=== PATIENT | male | born 1990 | race African-American/Black ===

== ENCOUNTER 2018-11-02 10:25 | Emergency (ER) | payer OTHER ==
[2018-11-02 10:31] VITALS: BP 139/85
--- NOTE | 2018-11-02 10:51 | ER Document Report ---
HPI - HPI Time Seen by Provider: 11/02/18 10:37 Pain Level: Denies Notes: Patient is an otherwise healthy 28-year-old male who presents with request for suture removal. Patient has sutures placed in his right forearm. He states they have been in place for approximately 8 days. He was [place] department [place] the sutures. - CONSTITUTIONAL Constitutional: DENIES: Fever, Chills Past Medical History - General Information source: Patient - Social History Smoking Status: Never Smoker Frequency of alcohol use: Occasional Drug Abuse: None Family History: Reviewed & Not Pertinent Patient has suicidal ideation: No Patient has homicidal ideation: No - Medical History Medical History: Negative Renal/ Medical History: Denies: Hx Peritoneal Dialysis Surgical Hx: Negative - Immunizations Immunizations up to date: Yes Vertical Provider Document - CONSTITUTIONAL Notes: PHYSICAL EXAMINATION: GENERAL: Well-appearing, well-nourished and in no acute distress. HEAD: Atraumatic, normocephalic. EYES: Pupils equal round extraocular movements intact, conjunctiva are normal. ENT: Nares patent NECK: Normal range of motion LUNGS: No respiratory distress Musculoskeletal: Normal range of motion NEUROLOGICAL: Normal speech, normal gait. PSYCH: Normal mood, normal affect. SKIN: Warm, Dry, normal turgor, no rashes or lesions noted. Sutures noted to right forearm, appears to be healed well, no erythema or drainage from the area. - INFECTION CONTROL TRAVEL OUTSIDE OF THE [place] IN LAST 30 DAYS: No Course - Re-evaluation Re-evalutation: Sutures removed, patient instructed on wound care. - Vital Signs Vital signs: Temp Pulse Resp BP Pulse Ox 98.3 F 45 L 14 139/85 H 100 11/02/18 10:30 11/02/18 10:30 11/02/18 10:30 11/02/18 10:30 11/02/18 10:30 Discharge - Discharge Clinical Impression: Visit for suture removal Condition: Stable Disposition: HOME, SELF-CARE Additional Instructions: Your sutures removed today there does not appear to be any signs of infection. I would continue to place a thin layer of a triple antibiotic ointment to the area twice daily. Please watch for signs of infection such as increasing redness to the area streaking redness from the area pus or drainage from the area or development of a fever. If these signs occur please return to the emergency department
== END 2018-11-02 11:02 | disposition home or self-care (01) ==
LOC: ER 10:25
DX: S51.811D Laceration without foreign body of right forearm, subsequent encounter (principal); X58.XXXD Exposure to other specified factors, subsequent encounter
CPT/HCPCS: 99281